=== PATIENT | female | born 1970 | race Caucasian/White ===

== ENCOUNTER 2019-11-30 16:51 | Emergency (ER) | payer BC ==
[~2019-11-30] VITALS: Ht 175.3 cm; Wt 72.0 kg
[2019-11-30] MEDS ORDERED: XANAX0.5 MG PO (17:11)
[2019-11-30] MEDS ORDERED: LEXAPRO10 MG PO (17:11)
[2019-11-30] MEDS ORDERED: LORTAB 5/3255 MG PO (17:12)
[2019-11-30 17:58] VITALS: BP 133/63
[2019-11-30] MEDS ORDERED: ULTRAM50 M1 PO (18:18)
== END 2019-11-30 18:20 | disposition home or self-care (01) | DRG 563 ==
LOC: ED 16:51
DX: S92.412A Displaced fracture of proximal phalanx of left great toe, initial encounter for closed fracture (principal); W18.49XA Other slipping, tripping and stumbling without falling, initial encounter; Y92.009 Unspecified place in unspecified non-institutional (private) residence as the place of occurrence of the external cause

== ENCOUNTER 2020-06-21 12:12 | Emergency (ER) | payer OTHER, BC ==
[~2020-06-21] VITALS: Ht 175.3 cm; Wt 70.0 kg
[~2020-06-21 12:12] MED LIST: LEXAPRO10 MG PO; LORTAB 5/3255 MG PO; ULTRAM50 M1 PO; XANAX0.5 MG PO
[2020-06-21] MEDS ORDERED: LEXAPRO20 MG PO (13:04)
[2020-06-21 14:45] VITALS: BP 114/56
== END 2020-06-21 14:45 | disposition home or self-care (01) | DRG 605 ==
LOC: ED 12:12
DX: S20.212A Contusion of left front wall of thorax, initial encounter (principal); F32.9 Major depressive disorder, single episode, unspecified; F41.9 Anxiety disorder, unspecified; V49.50XA Passenger injured in collision with unspecified motor vehicles in traffic accident, initial encounter